=== PATIENT | female | born 1990 | race American Indian/Alaskan Native ===

== ENCOUNTER 2018-03-17 01:39 | Emergency (ER) | payer MEDICAID ==
[2018-03-17 01:46] VITALS: O2SAT 98
--- NOTE | 2018-03-17 02:34 | C.PDOC ---
History Of Present Illness 27 yo female , LNMP 07/09/17, 36 wks , come in for evaluation of mild B/L ankle swelling gradually developed for past few days. Pt sts, "since early today developed chest pain, described as tightness across the chest" . Patient reports, intermittent. Otherwise, pt denies any complication during the current , denies hx of GDM, HTN, denies recent illness, fever, chills, headache, dizziness, neck pain, palpitation, diaphoresis, dyspnea, SOB, wheezing , abd. apin, V/D, UTI sx. Admits, (+) movement. FYI: During the evaluation, at bedside, screaming at patient and ED staff, appears combative. Pt admits, " he was screaming all day today like that ". Time Seen by Provider: 03/17/18 01:54 Chief Complaint (Nursing): Chest Pain History Per: Patient Past Medical History Reviewed: Historical Data, Nursing Documentation, Vital Signs Vital Signs: Last Vital Signs Temp 97.9 F 03/17/18 01:44 Pulse 90 03/17/18 01:44 Resp 16 03/17/18 01:44 BP 120/77 03/17/18 01:44 Pulse Ox 98 03/17/18 02:44 - Medical History PMH: No Chronic Diseases Family History: States: No Known Family Hx - Social History Hx Tobacco Use: No Hx Alcohol Use: No Hx Substance Use: No Review Of Systems Except As Marked, All Systems Reviewed And Found Negative. Constitutional: Negative for: Fever, Chills Eyes: Negative for: Vision Change ENT: Negative for: Ear Discharge, Nose Discharge, Nose Congestion, Throat Pain Cardiovascular: Positive for: Chest Pain. Negative for: Palpitations, Orthopnea , Paroxysmal Noc. Dyspnea, Light Headedness Respiratory: Negative for: Cough, Shortness of Breath, SOB with Excertion, Pleuritic Pain, Wheezing Gastrointestinal: Negative for: Nausea, Vomiting, Abdominal Pain Genitourinary: Negative for: Vaginal Bleeding Musculoskeletal: Negative for: Neck Pain, Back Pain Skin: Negative for: Rash Neurological: Negative for: Weakness, Numbness, Altered Mental Status, Headache , Dizziness Physical Exam - Physical Exam Appears: Well, Non-toxic, No Acute Distress Skin: Normal Color, Warm, Dry, No Rash Head: Normacephalic Eye(s): bilateral: PERRL Nose: No Flaring, No Discharge Oral Mucosa: Moist Throat: No Drooling Neck: Trachea Midline, Supple Chest: Symmetrical Cardiovascular: Rhythm Regular, No Murmur, No JVD, Other ((-) carotid bruits B/L ) Respiratory: No Decreased Breath Sounds, No Accessory Muscle Use, No Stridor, No Wheezing Gastrointestinal/Abdominal: Soft, No Tenderness, No Guarding, Other (Gravid) Back: No CVA Tenderness Extremity: Normal ROM, No Pedal Edema, No Deformity, Swelling (mild trace ankle edema B/L) Neurological/Psych: Oriented x3, Normal Speech ED Course And Treatment ECG: Interpreted By Me, Viewed By Me () ECG Rhythm: Sinus Rhythm Interpretation Of ECG: SR@87/min,NAD, T wave inverison in III, no acute ST-T changes. O2 Sat by Pulse Oximetry: 98 Pulse Ox Interpretation: Normal Progress Note: Case discussed with and transfer pateint to L&D now recommend for further monitoring. No further work up recommend now in ED. L&D notified about transfer. Pt remained stable during the ED evaluation. Afebrile , hemodynamicaly stable. NOn-toxic. Neurologicaly intact. Pt agrees with plan , pt transferred to L&D Disposition - Disposition Disposition: HOME/ ROUTINE Disposition Time: 02:26 Condition: STABLE Forms: [facility] (K[place]akh) - Clinical Impression Clinical Impression: Chest pain,
--- NOTE | 2018-03-17 03:03 | OBHP ---
Datetime: 03/17/2018 02:58 IP Adm Impression: , intrauterine IP Chief Complaint Other: nst IP Admit Plan: Discharge home Admit Comment, IP Provider: at 35=weeks her for nst . pt went to er for chest pain . feels bett er, no ctxs, vb , lof=fm obhx 3 x , 2 sab pmh de med pnv all nkda psh de soch de nst 130 mod bo ctg1 a/p at 35=weeks her for nst dc home ptl given p hy cont pnv f/u in 1-2 days Pelvic Type - PN: Adequate Extremities - PN: Normal Abdomen - PN: Normal Back - PN: Normal Breast - PN: Normal Lungs - PN: Normal Heart - PN: Normal Thyroid - PN: Normal Neurologic - PN: Normal HEENT - PN: Normal General - PN: Normal FHR - Baseline A Provider: 130 Contraction Comments Provider: none Vital Signs Provider: Reviewed; Within Normal Limits NICHD Variability Prov Fetus A: Moderate 6-25bpm NICHD Accel Fetus A IP Provider: [id number] FHR Category Provider Fetus A: Category I Genitourinary Exam: Normal DTRs - PN: Normal
--- NOTE | 2018-03-17 03:05 | OBDCSUM ---
Datetime: 03/17/2018 03:00 Discharged to, Provider: Home Follow up at, Provider: 1-2day Follow up in weeks, Provider: clinic Discharge Comment, Provider: dc home ptl given p hy cont pnv f/u in 1-2 days Discharge Diagnosis Prov Other: 3=5 we nst
[2018-03-17 07:26] VITALS: BP 110/59; PULSE 87; RESP 18; TEMP 97.1
--- NOTE | 2018-03-18 23:12 | CARD ---
APPROVED REPORT EKG Measurement Heart [id number] <Conclusion> Normal sinus rhythm Normal ECG
== END 2018-03-17 03:15 | disposition home or self-care (01) ==
LOC: C.ER 01:39 → C.EROB 01:39
DX: O26.893 Other specified pregnancy related conditions, third trimester (principal); Z3A.36 36 weeks gestation of pregnancy; R07.9 Chest pain, unspecified